=== PATIENT | female | born 1955 | race Caucasian/White ===

== ENCOUNTER 2024-03-29 11:34 | Emergency (ER) | payer MEDICARE, OTHER ==
[~2024-03-29] VITALS: Ht 170.2 cm; Wt 88.5 kg
[2024-03-29] MEDS: LIDOCAINE 1% HCL (LOCAL ANESTH.) INJ 20ML MDV IJ ONE (12:09)
[2024-03-29] MEDS ORDERED: ACET-1080 PO (12:54)
[2024-03-29] MEDS ORDERED: CEPH500C PO (12:54)
[2024-03-29 12:58] VITALS: BP 152/77; PULSE 86; RESP 16; TEMP 98.1; O2SAT 98
== END 2024-03-29 12:59 | disposition home or self-care (01) ==
LOC: ER 11:34 → EDBD 11:34 → ER 12:59
DX: S02.2XXA Fracture of nasal bones, initial encounter for closed fracture (principal); S01.21XA Laceration without foreign body of nose, initial encounter; W18.09XA Striking against other object with subsequent fall, initial encounter; Y93.89 Activity, other specified; Y92.89 Other specified places as the place of occurrence of the external cause; Y99.8 Other external cause status
CPT/HCPCS: 12011; 70450; 70486; 99284; J2001